=== PATIENT | female | born 1965 | race Caucasian/White ===

== ENCOUNTER 2020-09-22 19:17 | Emergency (ER) | payer BC ==
[~2020-09-22] VITALS: Wt 90.7 kg
[2020-09-22] MEDS ORDERED: MEDROL DOSEPAK4 MG PO (21:00)
== END 2020-09-22 21:05 | disposition home or self-care (01) ==
LOC: ED 19:17
DX: T63.441A Toxic effect of venom of bees, accidental (unintentional), initial encounter (principal); L53.9 Erythematous condition, unspecified; R42 Dizziness and giddiness; L29.9 Pruritus, unspecified; Z88.0 Allergy status to penicillin; Z91.013 Allergy to seafood; Z90.711 Acquired absence of uterus with remaining cervical stump; Y92.89 Other specified places as the place of occurrence of the external cause

== ENCOUNTER 2020-10-30 19:22 | Emergency (ER) | payer BC ==
[~2020-10-30] VITALS: Ht 167.6 cm; Wt 89.8 kg
[~2020-10-30 19:22] MED LIST: MEDROL DOSEPAK4 MG PO
[2020-10-30 20:00] LABS: BASO % 0.4 % (0.0-1.0); EOS # 0.1 10*3/uL (0.0-0.4); EOS % 0.9 % (1.0-4.0); HEMATOCRIT 41.6 % (37.0-47.0); LYMPH # 2.6 10*3/uL (1.3-4.4); LYMPH % 38.8 % (27.0-41.0); MEAN CORPUSCULAR HGB 30.5 pg (27.0-31.0); MEAN CORPUSCULAR HGB CONC 33.2 g/dl (33.0-37.0); MEAN PLATELET VOLUME 9.4 fl (9.6-12.3); MONO # 0.6 10*3/uL (0.1-1.0); MONO % 9.3 % (3.0-9.0); NEUT # 3.4 10*3/uL (2.3-7.9); NEUT % 50.3 % (47.0-73.0); PLATELET COUNT AUTOMATED 311 10*3/uL (130-400); RED BLOOD COUNT 4.52 10*6/uL (4.10-5.10); RED CELL DISTRI WIDTH 12.8 % (0-14.5); WHITE BLOOD COUNT 6.8 10*3/uL (4.8-10.8)
[2020-10-30 20:17] LABS: ALBUMIN 3.3 gm/dl (3.1-4.5); ALKALINE PHOSPHATASE 66 U/L (45-117); BUN 12 mg/dl (7-24); CHLORIDE 107 mmol/L (98-107); CREATININE 0.83 mg/dL (0.55-1.02); POTASSIUM 3.8 mmol/L (3.5-5.1); SGOT/AST 29 IU/L (3-35); SGPT/ALT 46 U/L (12-78); SODIUM 139 mmol/L (136-145); TOTAL PROTEIN 7.2 gm/dL (6.4-8.2)
[2020-10-30 20:20] LABS: TROPONIN I < 0.015 ng/ml (<0.045)
[2020-10-30] MEDS ORDERED: LISINOPRIL20 MG PO (23:16)
== END 2020-10-30 23:43 | disposition home or self-care (01) ==
LOC: ED 19:22
PROVIDERS: Internal Medicine
DX: I10 Essential (primary) hypertension (principal); Z20.822 Contact with and (suspected) exposure to COVID-19; Z88.0 Allergy status to penicillin; Z91.013 Allergy to seafood